=== PATIENT | female | born 1945 | race Caucasian/White ===

== ENCOUNTER 2021-03-19 09:40 | Inpatient (IN) | payer MEDICARE ==
[2021-03-13 12:17] LABS: BASOPHILS # (AUTO) 0.2 X10'3 (0-0.2); BASOPHILS % (AUTO) 1.9 % (0-1); EOSINOPHILS # (AUTO) 0.2 X10'3 (0-0.9); EOSINOPHILS % (AUTO) 2.2 % (0-6); LYMPHOCYTES # (AUTO) 2.2 X10'3 (1.1-4.8); LYMPHOCYTES % (AUTO) 24.5 % (21-51); MEAN CORPUSCULAR HEMOGLOBIN 28.7 PG (27.0-31.0); MEAN CORPUSCULAR HGB CONC 33.2 g/dL (33.0-36.5); MEAN CORPUSCULAR VOLUME 86.5 FL (78-98); MEAN PLATELET VOLUME 7.7 FL (7.4-10.4); MONOCYTES # (AUTO) 0.7 X10'3 (0-0.9); MONOCYTES % (AUTO) 7.5 % (2-12); NEUTROPHILS # (AUTO) 5.7 X10'3 (1.8-7.7); NEUTROPHILS % (AUTO) 63.9 % (42-75); PRE OP HEMATOCRIT 41.1 % (35.0-45.0); PRE OP HEMOGLOBIN 13.7 g/dL (12.0-16.0); PRE OP PLATELET COUNT 430 X10'3 (140-440); RED BLOOD COUNT 4.75 X10'6 (4.20-5.60); RED CELL DISTRIBUTION WIDTH 14.2 % (11.5-14.5)
[2021-03-13 12:25] LABS: PRE OP PROTIME 10.3 SECONDS (9.0-12.0)
[2021-03-13 12:26] LABS: ALBUMIN 3.9 G/DL (3.4-5.0); ALBUMIN/GLOBULIN RATIO 0.9 (1.1-1.5); ALKALINE PHOSPHATASE 95 IU/L (46-116); BLOOD UREA NITROGEN 14 MG/DL (7-18); BUN/CREATININE RATIO 20.6 (6.6-38.0); CALCIUM 9.1 MG/DL (8.5-10.1); CHLORIDE 104 MMOL/L (99-107); CREATININE 0.68 MG/DL (0.40-0.90); PRE OP ALT 30 U/L (30-65); PRE OP ANION GAP 9 (8-16); PRE OP AST 21 U/L (10-37); PRE OP BILIRUB, TOTAL 0.5 MG/DL (0.0-1.0); PRE OP GLUCOSE 85 MG/DL (70-104); PRE OP SODIUM 141 MMOL/L (135-145); TOTAL CARBON DIOXIDE 28.3 MMOL/L (24-32); TOTAL PROTEIN 8.3 G/DL (6.4-8.2); eGFR 84 ML/MIN
[2021-03-19] VITALS (40 sets, daily range): BP systolic 114–214; BP diastolic 62–113
[~2021-03-19] VITALS: Ht 165.1 cm; Wt 73.1 kg
[~2021-03-19 09:40] MED LIST: NO HOME MEDS; diazepam 5mg tablet PO ONE; famotidine 20mg tablet PO ONE; ringers solution, lacted 1,000 ML IV SCH
[2021-03-19] MEDS: oxymetazoline 15 ML nasal spray NS SCH (11:02)
[2021-03-19] MEDS ORDERED: LIDOCAINE 1%/EPI 1:100,000 inj. 10 ML multi-dose vial ONE (11:09)
[2021-03-19] MEDS ORDERED: oxymetazoline 15 ML nasal spray NS ONE (11:09)
[2021-03-19] MEDS ORDERED: cocaine 4% topical solution 4ml bottle ONE (11:09)
[2021-03-19] MEDS ORDERED: mupirocin 2% ointment 22GM ONE (11:09)
[2021-03-19] MEDS ORDERED: fentaNYL/PF 50MCG/1 ML 2ML syringe ONE ×2 (12:19→13:32)
[2021-03-19] MEDS ORDERED: ondansetron/PF 4mg/2ml inj IV PRN (12:45)
[2021-03-19] MEDS ORDERED: HYDROmorphone/PF 0.2 MG/ML SYRINGE IV PRN ×2 (12:45→21:35)
[2021-03-19] MEDS ORDERED: labetalol 20mg/4ml (5mg/ml) syringe IV PRN (12:45)
[2021-03-19] MEDS ORDERED: hydrALAZINE 20mg/ml inj. IV PRN (12:45)
[2021-03-19] MEDS ORDERED: ringers solution, lacted 1,000 ML IV SCH (12:45)
[2021-03-19] MEDS ORDERED: ondansetron/PF 4mg/2ml inj ONE (13:03)
[2021-03-19] MEDS ORDERED: dexamethasone sod phosphate 4mg/ml inj. ONE (13:03)
[2021-03-19] MEDS ORDERED: LIDOcaine 2% (20mg/ml) 5ml vial ONE (13:03)
[2021-03-19] MEDS ORDERED: propofol inj 20 ML IV ONE (13:03)
[2021-03-19] MEDS ORDERED: labetalol 20mg/4ml (5mg/ml) syringe IV ONE (13:51)
[2021-03-19] MEDS ORDERED: morphine 4 MG/ML inj SYRINge ONE (14:09)
--- NOTE | 2021-03-19 14:10 | NUR ---
PT ARRIVED TO [facility]ERY VIA [facility], REPORT FORM ANESTHESIA GIVEN, WAKING UP-PULLING AT MASK AND TRYING TO TOUCH FACE, BP ELEVATED-DR. DEMPSEY PRESENT AND AWARE, GIVEN BP MEDS TO HELP WITH PRESSURE. COTTONOIDS IN PLACE-NO BLEEDING NOTED, PIV TO RUE-LR RUNNING AT 20ML/HR, DENIES PAIN.
[2021-03-19] MEDS: morphine 2 MG/ML inj. syringe IV PRN ×2 (14:56→18:36)
[2021-03-19] MEDS ORDERED: salt irrigation nasal spray 45 ML SPRAY NS PRN (15:10)
--- NOTE | 2021-03-19 16:00 | NUR ---
PT C/O NAUSEA AND STILL PAINFUL, GIVEN ZOFRAN AND MORPHINE, BP BETTER, NO BLEEDING NOTED, COTTONOIDS REMOVED.
--- NOTE | 2021-03-19 17:30 | NUR ---
ATTEMPTED TO HAVE PT STAND AND GET DRESSED, PT C/O NAUSEA AND FEELING LIGHT HEADED-BP 118/64, HAD PT GET BACK TO BED.
--- NOTE | 2021-03-19 18:00 | NUR ---
SPOKE WITH DTR IN LAW AND BOTH AGREE PT SHOULD STAY OVER NIGHT FOR OBSERVATION, DECISION SUPPORT ANALYST AND HOSPITALIST CALLED.
[2021-03-19] MEDS ORDERED: temazepam 15mg capsule PO PRN (21:00)
--- NOTE | 2021-03-19 21:00 | NUR ---
PT UP TO THE BATHROOM WITH ASSIST VIA W/C, EMESIS OF OLD BLOOD X 3-FEELING BETTER AFTER EMESIS, ABLE TO VOID WITH HELP, STILL FIGHTING NAUSEA, PT MOVED BACK TO BED, HOOKED UP TO MONITOR-NOTED HR TO BE ELEVATED AT 137-TELE APPEARED TO BE ST, BP STABLE NO OTHER SN/SX, PT TAKEN ON MONITOR TO PCU ROOM 3018B WITH DTR AND BELONGINGS, PRIMARY RN IN ROOM TO RECEIVE PT. - REPORT HAD BEEN GIVEN PRIOR TO ELEVATED HR EPISODE, RN UPDATED ON PT CURRENT VS, EKG DONE IN ROOM AND PT PLACED ON TELE. PRIMARY RN TO [facility] HOSPITALIST TO OBTAIN ORDERS PER HOUSE SUP. PRIOR TO TRANSFER TO FLOOR-MUSTAC[facility] GAUZE WAS CHANGED AND PT AND DTR HAD BEEN EDUCATED ON HOME CARE AND DTR GIVEN NECESSARY SUPPLIES-ALL QUESTIONS ANSWERED.
[2021-03-19] MEDS ORDERED: HYDROmorphone inj. 0.5 MG/0.5 ML DISP.SYRIN IV PRN (21:35)
[2021-03-19] MEDS ORDERED: ondansetron 4mg rapidly disintigrating tab PO PRN (21:35)
[2021-03-19] MEDS ORDERED: bisacodyl 10mg suppository rectal RC PRN (21:35)
[2021-03-19] MEDS ORDERED: mag hydrox/Alum hydrox/simeth 30ml oral suspension PO PRN (21:35)
[2021-03-19] MEDS ORDERED: magnesium hydroxide 30ml (MOM) UD suspension PO PRN (21:35)
[2021-03-19] MEDS ORDERED: dextrose 5%-1/2 normal saline 1,000 ML IV SCH (21:35)
[2021-03-19] MEDS ORDERED: diphenhydrAMINE 50 mg/ml inj IV PRN (21:35)
[2021-03-19] MEDS ORDERED: morphine 2 MG/ML inj. syringe IV PRN ×2 (21:35)
[2021-03-19] MEDS ORDERED: diphenhydrAMINE 25mg capsule PO PRN (21:35)
[2021-03-19 22:55] LABS: PHOSPHORUS 3.5 MG/DL (2.3-4.5)
[2021-03-19] MEDS: ondansetron/PF 4mg/2ml inj IV PRN (23:32)
[2021-03-20 02:31] VITALS: BP 124/61
[2021-03-20 06:00] VITALS: BP 129/66
[2021-03-20] MEDS: ondansetron/PF 4mg/2ml inj IV PRN (06:01)
--- NOTE | 2021-03-20 06:38 | NUR ---
Patient in room PCU 3018. I have received report from GISELLA Barr and had the opportunity to ask questions and assume patient care.
[2021-03-20 07:11] LABS: BASOPHILS % (AUTO) 0.3 % (0-1); EOSINOPHILS % (AUTO) 0 % (0-6); HEMATOCRIT 36.2 % (35.0-45.0); HEMOGLOBIN 11.9 g/dl (12.0-16.0); LYMPHOCYTES # (AUTO) 1.2 X10'3 (1.1-4.8); LYMPHOCYTES % (AUTO) 8.6 % (21-51); MEAN CORPUSCULAR HEMOGLOBIN 28.6 PG (27.0-31.0); MEAN CORPUSCULAR HGB CONC 32.9 g/dL (33.0-36.5); MEAN PLATELET VOLUME 7.8 FL (7.4-10.4); MONOCYTES % (AUTO) 7.7 % (2-12); NEUTROPHILS # (AUTO) 11.2 X10'3 (1.8-7.7); NEUTROPHILS % (AUTO) 83.4 % (42-75); PLATELET COUNT 382 X10'3 (140-440); RED BLOOD COUNT 4.16 X10'6 (4.20-5.60); WHITE BLOOD COUNT 13.4 X10'3 (4.5-11.0)
[2021-03-20] MEDS ORDERED: pantoprazole 40mg Tablet.DR PO SCH (07:30)
[2021-03-20 07:33] LABS: ALANINE AMINOTRANSFERASE 15 U/L (12-78); ALKALINE PHOSPHATASE 78 IU/L (46-116); ASPARTATE AMINO TRANSFERASE 19 U/L (10-37); BILIRUBIN,TOTAL 0.4 MG/DL (0.1-1.0); BLOOD UREA NITROGEN 13 MG/DL (7-18); BUN/CREATININE RATIO 18.6 (6.6-38.0); CALCIUM 8.9 MG/DL (8.5-10.1); CHLORIDE 101 MMOL/L (99-107); CHOL/HDL RATIO 3.6 (0.00-4.99); CHOLESTEROL 231 MG/DL (0-200); GLUCOSE 119 MG/DL (70-104); HDL CHOLESTEROL 64 MG/DL (35-60); LDL CHOLESTEROL 152 MG/DL (50-100); POTASSIUM 4.2 MMOL/L (3.5-5.1); SODIUM 136 MMOL/L (135-145); TRIGLYCERIDES 37 MG/DL (20-135); eGFR 81 ML/MIN
[2021-03-20] MEDS: mupirocin 2% nasal ointment 1gm UD NS SCH ×2 (07:45→07:58)
[2021-03-20] MEDS: oxymetazoline 15 ML nasal spray NS SCH ×2 (07:47→07:58)
[2021-03-20 07:48] LABS: ANION GAP 8 (8-16); TOTAL CARBON DIOXIDE 26.8 MMOL/L (24-32)
[2021-03-20] MEDS ORDERED: docusate sod 100mg capsule PO SCH (08:00)
[2021-03-20 09:07] LABS: ALBUMIN 3.3 G/DL (3.4-5.0); ALBUMIN/GLOBULIN RATIO 0.9 (1.1-1.5)
--- NOTE | 2021-03-20 11:38 | NUR ---
Patient is alert and oriented in no apparent distress. Patient's daughter at bedside. Discussed with patient discharge instructions. Patient daughter said all post op information from Dr. Wright at home as well. Discharge meds from Dr. Wright in patients belongings bag along with all personal belongings. Patient and daughter verbalized understanding of teaching. Patient escorted out in wheelchair accompanied by daughter and pct. IV dc'd.
== END 2021-03-20 12:04 | disposition home or self-care (01) | DRG 145 ==
LOC: PAS 09:40 → PCU 3S 20:08 → PAS 21:41 → PCU 3S 03-20 12:04 → PAS 03-20 12:04
PROVIDERS: ADMIT Family Medicine; ATTEND Otolaryngology
PROC: 09TV8ZZ Resection of Left Ethmoid Sinus, Via Natural or Artificial Opening Endoscopic (ICD-10-PCS; 2021-03-19)
PROC: 09TU8ZZ Resection of Right Ethmoid Sinus, Via Natural or Artificial Opening Endoscopic (ICD-10-PCS; 2021-03-19)
PROC: 099X8ZZ Drainage of Left Sphenoid Sinus, Via Natural or Artificial Opening Endoscopic (ICD-10-PCS; 2021-03-19)
PROC: 099W8ZZ Drainage of Right Sphenoid Sinus, Via Natural or Artificial Opening Endoscopic (ICD-10-PCS; 2021-03-19)
PROC: 099R8ZZ Drainage of Left Maxillary Sinus, Via Natural or Artificial Opening Endoscopic (ICD-10-PCS; 2021-03-19)
PROC: 099Q8ZZ Drainage of Right Maxillary Sinus, Via Natural or Artificial Opening Endoscopic (ICD-10-PCS; 2021-03-19)
PROC: 8E09XBZ Computer Assisted Procedure of Head and Neck Region (ICD-10-PCS; 2021-03-19)
PROC: 09TL8ZZ Resection of Nasal Turbinate, Via Natural or Artificial Opening Endoscopic (ICD-10-PCS; principal; 2021-03-19 12:15)
DX: J34.2 Deviated nasal septum (principal); J34.3 Hypertrophy of nasal turbinates; J32.9 Chronic sinusitis, unspecified; E86.0 Dehydration; I10 Essential (primary) hypertension; J34.89 Other specified disorders of nose and nasal sinuses; R00.0 Tachycardia, unspecified; R11.0 Nausea; Z88.0 Allergy status to penicillin; Z88.5 Allergy status to narcotic agent; Z88.8 Allergy status to other drugs, medicaments and biological substances
CPT/HCPCS: 36415; 70486; 71045; 80053; 80061; 82948; 83036; 83690; 83735; 83880; 84100; 84443; 84484; 85025; 85576; 85610; 85730; 87635; 88300; 88304; 88311; 93005; A4618; A6402; A7000; C9250; C9803; G0378; J0360; J1100; J1170; J2270; J2405; J2704; J3010; J3490; J7040; J7042; J7120; U0003; U0005